=== PATIENT | male | born 1990 | race Caucasian/White ===

== ENCOUNTER 2016-12-22 18:19 | Emergency (ER) | payer SELFPAY ==
[2016-12-22] MEDS ORDERED: DEXAMETHASONE SOD PHOS 4 MG/ML VIAL IM ONE (19:39)
[2016-12-22] MEDS ORDERED: HYDROcodone /APAP 10/325 1 EACH TABLET PO ONE (19:40)
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
[2016-12-22 19:56] VITALS: BP 138/86
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
== END 2016-12-22 19:55 | disposition home or self-care (01) ==
LOC: ED 18:19
DX: S00.83XA Contusion of other part of head, initial encounter (principal); S13.4XXA Sprain of ligaments of cervical spine, initial encounter; V49.60XA Unspecified car occupant injured in collision with unspecified motor vehicles in traffic accident, initial encounter; Y93.9 Activity, unspecified; Y99.9 Unspecified external cause status
CPT/HCPCS: 70450; 70486; 72125; 99283

== ENCOUNTER 2018-08-21 00:51 | Emergency (ER) | payer SELFPAY ==
--- NOTE | 2018-08-21 01:27 | ED Physician Documentation ---
General Adult - HISTORIAN Historian: patient - HPI Stated Complaint: dental pain Chief Complaint: General Adult Onset: days ago Timing: still present Further Comments: yes (Pt is a 27 yo male with dental pain. Pt has a fx'd tooth on the upper R. Pain x 2 days. Pt has dental appointment in 4 days. No fever. Pain radiates to R ear.) - ROS CONST: no problems EYES/ENT: other (dental pain) CVS/RESP: none GI/: none MS/SKIN/LYMPH: none - PAST HX Past History: none Allergies/Adverse Reactions: Allergies Allergy/AdvReac Type Severity Reaction Status Date / Time No Known Allergies Allergy Verified 08/21/18 01:33 Home Medications: Ambulatory Orders Medication Instructions Recorded NK 12/22/16 - SOCIAL HX Smoking History: cigarettes - FAMILY HX Family History: No - VITAL SIGNS Vital Signs: Vital Signs Temp Pulse Resp BP Pulse Ox 138/86 12/22/16 19:55 - REVIEWED ASSESSMENTS Nursing Assessment Reviewed: Yes Vitals Reviewed: Yes Progress - Progress Progress: Rx Keflex 500 mg. Take one every 8 hours for 10 days. Rx Granite (5/325). Take one or two tablets by mouth every 4 to 6 hours as needed for moderate to severe pain. #15 General Adult Physical Exam - PHYSICAL EXAM GENERAL APPEARANCE: moderate distress EENT: pharynx normal, other (Fractured upper R molar, tenderness) NECK: normal inspection, supple RESPIRATORY: no resp distress, chest non-tender CVS: reg rate & rhythm, heart sounds normal BACK: normal inspection SKIN: warm/dry, normal color EXTREMITIES: non-tender, normal range of motion, no evidence of injury NEURO: oriented X3, motor nml, sensation nml Discharge Clincal Impression: Pain, dental Referrals: Primary Doctor,No [Primary Care Provider] - Condition: Good Disposition: HOME, SELF-CARE Decision to Admit: NO Decision Time: 02:40
[2018-08-21] MEDS ORDERED: HYDROcodone /APAP 5/325 1 EACH TABLET PO ONE (01:32)
[2018-08-21] MEDS ORDERED: CEPHALEXIN 250 MG CAPSULE PO ONE (01:32)
[2018-08-21 01:33] VITALS: BP 141/82
== END 2018-08-21 01:57 | disposition home or self-care (01) ==
LOC: ED 00:51
DX: K08.89 Other specified disorders of teeth and supporting structures (principal); Z72.0 Tobacco use
CPT/HCPCS: 99282; 99283; A9270

== ENCOUNTER 2018-10-10 14:48 | Emergency (ER) | payer SELFPAY ==
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
[2018-10-10] MEDS ORDERED: IBUPROFEN 400 MG TABLET PO ONE (15:24)
[2018-10-10 15:28] VITALS: BP 171/77
== END 2018-10-10 15:31 | disposition home or self-care (01) ==
LOC: ED 14:48
DX: K08.89 Other specified disorders of teeth and supporting structures (principal); Z72.0 Tobacco use
CPT/HCPCS: 99282; 99283